=== PATIENT | female | born 2000 | race Caucasian/White ===

== ENCOUNTER 2020-07-28 10:40 | Emergency (ER) | payer MEDICAID, OTHER ==
--- NOTE | 2020-07-28 11:17 | EDM.PDOC ---
ED HPI GENERAL MEDICAL PROBLEM - General Chief Complaint: Lower Extremity Injury/Pain Stated Complaint: R FOOT PAIN Time Seen by Provider: 07/28/20 11:17 Source of Information: Reports: Patient History Limitations: Reports: No Limitations - History of Present Illness INITIAL COMMENTS - FREE TEXT/NARRATIVE: 19-year-old female presents to the ED for evaluation of acute injury to her right lateral foot. She reports that as she was coming out of the doorway this morning she struck a pile of patio bricks that are just outside the door. 1 of them fell off and landed on her lateral right foot causing an immediate large hematoma suggesting venous break under the skin right over the fifth metatarsal head. Swelling is subsequently dissipated a good deal. Still has significant pain with any movement of the right fourth or fifth toes. She is limping gait on her heel primarily. Injury occurred about 0830 hrs. this morning. There are no open wounds. Onset: Today, Sudden Onset Date: 07/28/20 Onset Time: 08:30 Duration: Hour(s):, Improving Location: Reports: Lower Extremity, Right (Injury to the right lateral foot over the) Quality: Reports: Ache ( fifth metatarsal head.), Throbbing Severity: Moderate Improves with: Reports: Other Worsens with: Reports: Movement (Or attempting to walk.) Context: Reports: Trauma. Denies: Activity, Exercise, Lifting, Sick Contact Associated Symptoms: Reports: No Other Symptoms (Force trauma from a large patio brick striking the dorsal aspect of her foot.) Treatments LAUNDRY WASHER: Reports: Acetaminophen, Other (see below) Other Treatments LAUNDRY WASHER: elevtion Right Feet Pain Score (Numeric/FACES): 10 - Related Data Allergies Allergy/AdvReac Type Severity Reaction Status Date / Time No Known Allergies Allergy Verified 11/19/19 10:55 Home Meds: Home Meds . [No Known Home Meds] 07/28/20 [History] Past Medical History : 1 Para: 2 (Had a set of twins 2 weeks ago.) Musculoskeletal History: Reports: Other (See Below) Other Musculoskeletal History: right wrist withh pins and now removed about 5 yrs ago - Past Surgical History Female Surgical History: Reports: Section Other Musculoskeletal Surgeries/Procedures:: ruptured acl and minscus Social & Family History - Tobacco Use Smoking Status *Q: Current Every Day Smoker Years of Tobacco use: 2 Packs/Tins Daily: 0.2 - Caffeine Use Caffeine Use: Reports: Coffee, Soda - Recreational Drug Use Recreational Drug Use: No - Living Situation & Occupation Living situation: Reports: (Mother at home.) Occupation: Employed Review of Systems - Review of Systems Review Of Systems: See Below Constitutional: Reports: No Symptoms Eyes: Reports: No Symptoms Ears: Reports: No Symptoms Nose: Reports: No Symptoms Mouth/Throat: Reports: No Symptoms Respiratory: Reports: No Symptoms Cardiovascular: Reports: No Symptoms GI/Abdominal: Reports: No Symptoms Genitourinary: Reports: No Symptoms Musculoskeletal: Reports: Other Skin: Reports: Bruising (Right lateral foot pain see history of present illness) Neurological: Reports: No Symptoms ED EXAM, GENERAL - Physical Exam Exam: See Below (Lateral right foot) Exam Limited By: No Limitations General Appearance: Alert, WD/WN, No Apparent Distress, Other (Temperature 37.0 with a heart rate of 78 and sinus. Respiratory is 20 with O2 sats of 99% room air BP 105/64.) Extremities: Other (Examination was limited to the right foot. There is still a significant hematoma approximately 3 cm in diameter right over the fifth metatarsal head lateral dorsal foot. She has pain if she attempts to plantarflex flex the fourth or fifth toes. No swelling on the plantar surface of the foot identified.) Psychiatric: Normal Affect, Normal Mood Skin Exam: Warm, Dry, Intact, Ecchymosis (Over the fifth metatarsal head right dorsal foot.) Course - Vital Signs Last Recorded V/S: Last Vital Signs Temp 37.0 C 07/28/20 10:58 Pulse 78 07/28/20 10:58 Resp 20 07/28/20 10:58 BP 105/64 07/28/20 10:58 Pulse Ox 99 07/28/20 10:58 - Radiology Interpretation Free Text/Narrative:: 19-year-old female attends the ED with an acute injury caused by blunt trauma to the dorsal lateral aspect of her right foot. A large patio brick fell on top of her foot at 0830 hrs. this morning causing immediate large hematoma to form over the fifth metatarsal head. She has pain now with plantar flexion of both the fourth and fifth toes in this area. Plan x-ray of the foot to be done x3 view. - Re-Assessments/Exams Free Text/Narrative Re-Assessment/Exam: 07/28/20 12:29 x-rays of the right foot do not reveal any fractures particularly over the fifth metatarsal head or fifth metatarsal. Patient had an Kaveh wrap placed. She will be able to partially weight-bear on her heel versus using crutches since she has a set of twins age 7 months at home. Elevate as much as possible. Ice pack to the area 1/2-hour every 4 hours. Motrin as needed for pain relief. Departure - Departure Time of Disposition: 12:30 Disposition: Home, Self-Care 01 Condition: Fair Clinical Impression: Contusion of right foot Qualifiers: Encounter type: initial encounter Qualified Code(s): S90.31XA - Contusion of right foot, initial encounter - Discharge Information *PRESCRIPTION DRUG MONITORING PROGRAM REVIEWED*: Not Applicable *COPY OF PRESCRIPTION DRUG MONITORING REPORT IN PATIENT [place]: Not Applicable Referrals: PCP,None [Primary Care Provider] - Forms: ED Department Discharge Additional Instructions: Evaluation in the emergency room this morning in regards to acute injury to the right lateral foot that occurred from a heavy patio brick landing on top of your foot this morning. This produced a immediate large hematoma indicating a large vein under the surface of the skin had been broken and leaked blood under the skin. It had started to resolve at the time he was seen in the ED. Of course this caused a significant amount of pain and likely some pain from surrounding nerves as well. X-ray of the foot did not reveal any broken bones in this area. Therefore you have suffered a contusion which is a bone bruise and broken blood vessel into the skin. Kaveh wrap applied in the ED. Suggest trying to elevate the foot as much as possible for the next 2 days. Ice pack to the area 1/2-hour out of every 4 hours if possible. Motrin 600 mg every 6 hours necessary for pain relief. Expect 5 to 8 days for the swelling and pain to start to settle down completely. You will not be able to wear a firm shoe for about a week or more due to pressure on this area. Follow-up with personal care physician if any further problems occur. Sepsis Event Note (ED) - Evaluation Sepsis Screening Result: No Definite Risk - Focused Exam Vital Signs: Vital Signs Temp Pulse Resp BP Pulse Ox 07/28/20 10:58 37.0 C 78 20 105/64 99
--- NOTE | 2020-07-28 11:58 | CR ---
Right foot: 4 views of the right foot were obtained. Comparison: No previous foot exam. Joint spaces are preserved. No discrete fracture, dislocation or other bony abnormalities appreciated. Impression: 1. No abnormality is appreciated on 4 view right foot study. Diagnostic code #1 This report was dictated in MDT
== END 2020-07-28 12:47 | disposition home or self-care (01) ==
LOC: JD.ED 10:40
DX: S90.31XA Contusion of right foot, initial encounter (principal); F17.210 Nicotine dependence, cigarettes, uncomplicated; W22.8XXA Striking against or struck by other objects, initial encounter
CPT/HCPCS: 73630-26-RT; 73630-RT; 99282; 99283-25